=== PATIENT | female | born 1955 | race Caucasian/White ===

== ENCOUNTER 2016-09-05 15:45 | Outpatient (CLI) | payer MEDICARE, MEDICAID ==
--- NOTE | 2016-09-05 16:27 | RAD ---
TWO VIEWS LEFT RIBS: History: Left sided back and rib pain. FINDINGS: Two views of the left ribs shows no evidence of displaced left rib fracture. No expansile rib lesi ons are seen. No pleural thickening or pneumothorax are seen. Bone anchors are seen in the humerus from prior left shoulder surgery. IMPRESSION: No evidence of left rib fracture. POS: [facility]
--- NOTE | 2016-09-05 16:29 | RAD ---
2 VIEWS OF CHEST: Date: 09/05/16 COMPARISON: 09/01/14. HISTORY: Acute left-sided back and chest pain. FINDINGS: Two views of the chest show normal sized cardiomediastinal silhouette. There is no evidence of conso lidation, mass, or pleural effusion. Bone anchors are seen in the humerus. IMPRESSION: No evidence of acute cardiopulmonary disease. POS: [facility]
== END 2016-09-05 15:46 | disposition home or self-care (01) ==
LOC: BURRAD 15:45
PROVIDERS: ATTEND Family Medicine
DX: M54.6 Pain in thoracic spine (principal)
CPT/HCPCS: 71020

== ENCOUNTER 2016-11-03 16:48 | Outpatient (CLI) | payer MEDICARE, MEDICAID | END 2016-11-03 16:49 | disposition home or self-care (01) | LOC: HPCALD 16:49 | PROVIDERS: ATTEND Family Medicine | DX: Z00.00 Encounter for general adult medical examination without abnormal findings (principal) ==

== ENCOUNTER 2016-11-09 11:20 | Outpatient (CLI) | payer MEDICARE, MEDICAID ==
[2016-11-09 12:30] LABS: ALT (SGPT) 16 U/L (8-55); AST (SGOT) 18 U/L (5-34); Alkaline Phosphatase 94 U/L (40-150); Anion Gap 14 mmol/L (10-20); BUN (Urea Nitrogen) 17 mg/dL (9.8-20.1); Bilirubin, Total 0.7 mg/dL (0.2-1.2); Calc. Creatinine Clearance 0 mL/min (70-130); Calcium 9.2 mg/dL (7.8-10.44); Carbon Dioxide 25 mmol/L (23-31); Chloride 108 mmol/L (98-107); Cholesterol 193 mg/dl (< 200 Desired); Estimated GFR-MDRD 68; Globulin 2.9 g/dL (2.4-3.5); Glucose 111 mg/dL (80-115); HDL Cholesterol 65 mg/dL (>60 Neg Risk); LDL Cholesterol, Calculated 103 mg/dL; Protein, Total 6.9 g/dL (6.0-8.3); Sodium 142 mmol/L (136-145); Triglycerides 126 mg/dL (Less than 150)
[2016-11-09 12:32] LABS: #Basophils 0.1 thou/uL (0.0-0.2); #Eosinphils 0.3 thou/uL (0.0-0.7); #Lymphocytes 1.7 thou/uL (1.20-3.40); #Monocytes 0.5 thou/uL (0.11-0.59); #Neutrophils 3.1 thou/uL (1.40-6.50); %Basophils 1.3 % (0.0-1.0); %Eosinophils 5.8 % (0.0-10.0); %Monocytes 8.9 % (0.0-10.0); %Neutrophils 54.1 % (42.0-75.0); Hemoglobin 13.1 g/dL (12.0-16.0); Mean Corpuscular HGB CONC 32.2 g/dL (32.0-36.0); Mean Corpuscular Hemoglobin 29.8 pg (27.0-31.0); Mean Corpuscular Volume 92.7 fl (81.0-99.0); Mean Platelet Volume 9.3 fL (7.4-10.4); Platelet Count 204 thou/uL (130-400); Red Blood Cell (RBC) Count 4.39 mill/uL (4.20-5.40); White Blood Cell (WBC) Count 5.8 thou/uL (4.8-10.8)
[2016-11-09 13:05] LABS: Hemoglobin A1c 6.1 % (4.0-6.0)
[2016-11-09 18:58] LABS: Creatinine, Urine 143.97 mg/dL (47-110); Microalbumin Urine Less than 1.0 mg/dL (0.5-50.0); Microalbumin/Creat Ratio 6.9 mg/g (Less than 30)
== END 2016-11-09 11:21 | disposition home or self-care (01) ==
LOC: HPCALD 11:20
PROVIDERS: ATTEND Family Medicine
DX: E11.9 Type 2 diabetes mellitus without complications (principal)
CPT/HCPCS: 36415; 80053; 80061; 82043; 83036; 84443; 85025

== ENCOUNTER 2017-01-25 13:00 | Outpatient (CLI) | payer MEDICARE, OTHER | END 2017-01-25 13:01 | disposition home or self-care (01) | LOC: HPCALD 13:00 | PROVIDERS: ATTEND Family Medicine | DX: M89.9 Disorder of bone, unspecified (principal) | CPT/HCPCS: 36415; 82306 ==

== ENCOUNTER 2017-11-03 19:36 | Emergency (ER) | payer MEDICARE, MEDICAID ==
[2017-11-03] MEDS ORDERED: Ibuprofen 200 MG TAB ONE (20:05)
== END 2017-11-03 20:15 | disposition short-term general hospital (02) ==
LOC: BURERS 19:36
DX: I82.431 Acute embolism and thrombosis of right popliteal vein (principal); M19.90 Unspecified osteoarthritis, unspecified site; E11.9 Type 2 diabetes mellitus without complications; E78.5 Hyperlipidemia, unspecified; I10 Essential (primary) hypertension; F41.9 Anxiety disorder, unspecified; F32.9 Major depressive disorder, single episode, unspecified; F17.210 Nicotine dependence, cigarettes, uncomplicated; Z79.899 Other long term (current) drug therapy
CPT/HCPCS: 99282

== ENCOUNTER 2018-07-21 16:31 | Emergency (ER) | payer MEDICARE, MEDICAID ==
[2018-07-21] MEDS ORDERED: Ibuprofen 200 MG TAB ONE (17:03)
--- NOTE | 2018-07-21 21:32 | RAD ---
LEFT SHOULDER THREE VIEWS: 07/21/18 Some mild degenerative changes are present in the glenohumeral joint consistent of osteophytes. 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 No acute fracture was evident. There is no disloca tion. The AC joint is not widened. The visible adjacent ribs appear intact . IMPRESSION: No acute bony findings. POS: [facility]
--- NOTE | 2018-07-21 21:37 | RAD ---
LEFT WRIST THREE VIEWS: 07/21/18 No acute fracture was demonstrated. Some calcification is seen in the region of the triangular fibroc artilage. This can sometimes be seen in various calcium deposition diseases. Carpal relationships see m normal. A tiny lion of bone over the dorsum of the carpals is probably from an old injury. IMPRESSION: No acute bony findings. POS: [facility]
== END 2018-07-21 17:39 | disposition home or self-care (01) ==
LOC: BURERS 16:31
DX: S63.502A Unspecified sprain of left wrist, initial encounter (principal); S40.012A Contusion of left shoulder, initial encounter; F41.9 Anxiety disorder, unspecified; M19.90 Unspecified osteoarthritis, unspecified site; E78.5 Hyperlipidemia, unspecified; E11.9 Type 2 diabetes mellitus without complications; F17.210 Nicotine dependence, cigarettes, uncomplicated; I10 Essential (primary) hypertension; Z79.899 Other long term (current) drug therapy; Z79.84 Long term (current) use of oral hypoglycemic drugs; W18.30XA Fall on same level, unspecified, initial encounter

== ENCOUNTER 2019-06-24 20:35 | Emergency (ER) | payer MEDICARE, OTHER ==
[2019-06-24] MEDS ORDERED: HYDROcodone/Acetaminophen 5/325 mg Tablet ONE (21:01)
--- NOTE | 2019-06-24 21:35 | CT ---
Exam: CT brain PROVIDED CLINICAL HISTORY: Head injury COMPARISON: None FINDINGS: The ventricular system is normal in size and morphology. No evidence for intracranial hemorrhage or mass effect. Right periorbital soft tissue swelling The extracranial soft tissues and osseous structures demonstrate no additional evidence for an acute abnormality. IMPRESSION: No evidence for intracranial hemorrhage or mass effect.
--- NOTE | 2019-06-24 21:43 | CT ---
EXAM: CT cervical spine PROVIDED CLINICAL HISTORY: Pain COMPARISON: None FINDINGS: No evidence for fracture or traumatic subluxation. No prevertebral soft tissue swelling apparent. Vi sualized lung apices appear clear. Cervical degenerative changes are seen. IMPRESSION: No evidence for fracture or traumatic subluxation.
== END 2019-06-24 22:00 | disposition home or self-care (01) ==
LOC: BURERS 20:35
DX: S09.90XA Unspecified injury of head, initial encounter (principal); S13.4XXA Sprain of ligaments of cervical spine, initial encounter; S50.811A Abrasion of right forearm, initial encounter; S80.211A Abrasion, right knee, initial encounter; M19.90 Unspecified osteoarthritis, unspecified site; E11.9 Type 2 diabetes mellitus without complications; E78.5 Hyperlipidemia, unspecified; F41.9 Anxiety disorder, unspecified; F17.210 Nicotine dependence, cigarettes, uncomplicated; Z79.899 Other long term (current) drug therapy; Z79.84 Long term (current) use of oral hypoglycemic drugs; W01.0XXA Fall on same level from slipping, tripping and stumbling without subsequent striking against object, initial encounter
CPT/HCPCS: 70450; 72125

== ENCOUNTER 2019-08-03 16:25 | Emergency (ER) | payer MEDICARE, OTHER ==
--- NOTE | 2019-08-03 17:12 | RAD ---
XR Knee Rt 4 View STANDARD HISTORY: Right knee pain FINDINGS: There are postoperative changes of total knee arthroplasty in good position and alignment. No perihar dware lucency is noted to suggest loosening. No fracture or dislocation is identified.
== END 2019-08-03 17:24 | disposition home or self-care (01) ==
LOC: BURERS 16:25
DX: M25.561 Pain in right knee (principal); M19.90 Unspecified osteoarthritis, unspecified site; I10 Essential (primary) hypertension; E78.5 Hyperlipidemia, unspecified; F41.9 Anxiety disorder, unspecified; F17.210 Nicotine dependence, cigarettes, uncomplicated; Z79.899 Other long term (current) drug therapy; Z79.84 Long term (current) use of oral hypoglycemic drugs

== ENCOUNTER 2021-12-01 12:44 | Emergency (ER) | payer MEDICARE, OTHER ==
[2021-12-01] MEDS ORDERED: Acetaminophen 500 MG TAB ONE (13:33)
== END 2021-12-01 13:34 | disposition home or self-care (01) ==
LOC: BURERS 12:44
DX: S00.83XA Contusion of other part of head, initial encounter (principal); W18.30XA Fall on same level, unspecified, initial encounter; E11.9 Type 2 diabetes mellitus without complications; E78.5 Hyperlipidemia, unspecified; I10 Essential (primary) hypertension; F17.210 Nicotine dependence, cigarettes, uncomplicated; Z79.899 Other long term (current) drug therapy; Z79.01 Long term (current) use of anticoagulants; Z79.84 Long term (current) use of oral hypoglycemic drugs
CPT/HCPCS: 70450

== ENCOUNTER 2022-06-11 12:13 | Emergency (ER) | payer MEDICARE, OTHER ==
[2022-06-11] MEDS ORDERED: HYDROcodone/Acetaminophen 5/325 mg Tablet ONE (12:29)
== END 2022-06-11 14:08 | disposition home or self-care (01) ==
LOC: BURERS 12:13
DX: S30.0XXA Contusion of lower back and pelvis, initial encounter (principal); S70.02XA Contusion of left hip, initial encounter; E11.9 Type 2 diabetes mellitus without complications; E78.5 Hyperlipidemia, unspecified; I10 Essential (primary) hypertension; Z87.891 Personal history of nicotine dependence; Z79.899 Other long term (current) drug therapy; Z79.84 Long term (current) use of oral hypoglycemic drugs; W19.XXXA Unspecified fall, initial encounter
CPT/HCPCS: 74177

== ENCOUNTER 2022-08-03 16:14 | Outpatient (CLI) | payer MEDICARE, OTHER | END 2022-08-03 16:15 | disposition home or self-care (01) | LOC: BURRAD 16:14 | DX: R05.9 Cough, unspecified (principal); R50.9 Fever, unspecified; J90 Pleural effusion, not elsewhere classified | CPT/HCPCS: 71046 ==